=== PATIENT | female | born 1965 | race African-American/Black ===

== ENCOUNTER 2017-07-10 05:07 | Day surgery (SDC) | payer OTHER ==
[2017-07-03 12:29] VITALS: BMI 25.0
[2017-07-10] MEDS ORDERED: PROPOFOL 20 ML ONE ×2 (13:47)
[2017-07-10] MEDS ORDERED: MIDAZOLAM HCL 2 MG/2 ML SINGLE DOSE VIAL ONE ×2 (13:47)
[2017-07-10] MEDS ORDERED: LIDOCAINE 1%/EPI 1:100000 (50 ML MULTI DOSE VIAL) ONE (14:07)
[2017-07-10] MEDS ORDERED: BUPIVACAINE HCL/PF 0.5% (5MG/ML) 10 ML VIAL ONE (14:07)
[2017-07-10] MEDS ORDERED: LIDOCAINE 1%/EPI 1:100000 (20 ML MULTI DOSE VIAL) IJ ONE (14:33)
[2017-07-10] MEDS ORDERED: ACETAMINOPHEN 325 MG TABLET (FP) PO PRN (14:47)
[2017-07-10] MEDS ORDERED: ONDANSETRON 4 MG/2 ML VIAL IVPUSH PRN (14:47)
[2017-07-10] MEDS ORDERED: oxyCODONE HCL 5 MG TABLET PO PRN (14:47)
[2017-07-10] MEDS ORDERED: LACTATED RINGERS SOLUTION 1,000 ML IV SCH (15:00)
[2017-07-10 15:43] VITALS: TEMP 97.3
--- NOTE | 2017-07-10 16:18 | HP ---
Admitting History and Physical - Primary Care Physician PCP: Valentin Cramer (Tank Driver) - Admission Chief Complaint: Painful mass on the dorsum of the right foot first metatarsal anatomic neck area History of Present Illness: Mass has been present for several months and has remained unchanged since the patient first noticed it. Patient reports it is painful with any pressure exerted to the site. History Source: Medical Record (Medical history is deferred to PCP.) - Past Medical History ...LMP: 05/13/08 ...LMP Comment: PT HAD PAH 2007 - Smoking History Smoking history: Current every day smoker Have you smoked in the past 12 months: Yes Aproximately how many cigarettes per day: 5 - Alcohol/Substance Use Hx Alcohol Use: No Home Medications - Allergies Allergies/Adverse Reactions: Allergies Allergy/AdvReac Type Severity Reaction Status Date / Time No Known Allergies Allergy Verified 07/10/17 11:45 - Home Medications Home Medications: Ambulatory Orders Aspirin [ASA -] 81 mg PO DAILY 03/22/12 Nitroglycerin 0.4 mg SL PRN #1 tab.subl 03/26/12 Amlodipine Besylate [Norvasc -] 10 mg PO DAILY 03/07/16 Hydrochlorothiazide [Hctz -] 25 mg PO DAILY 03/07/16 Metoprolol Tartrate [Lopressor -] 100 mg PO DAILY 03/07/16 Isosorbide Mononitrate [Imdur -] 30 mg PO DAILY 07/10/17 Physical Examination Vital Signs: Vital Signs Temperature 97.3 F L 07/10/17 15:35 Pulse Rate 64 07/10/17 15:35 Respiratory Rate 16 07/10/17 15:35 Blood Pressure 133/87 07/10/17 15:35 O2 Sat by Pulse Oximetry (%) 98 07/10/17 15:35 Eyes: Yes: Occular Prosthesis Extremities: Yes: Other (Right dorsal first metatarsal anatomic neck area has palpable indurated mass with no overlying cutaneous inflammation or ulceration.) Assessment/Plan Assessment Probable ganglion/soft tissue mass of unknown origin Plan Center line biopsy to determine the tissue histology. Appropriate resection will be performed at a later date.
[2017-07-10 16:45] VITALS: BP 142/87; PULSE 77
--- NOTE | 2017-07-11 08:25 | OP ---
DATE OF OPERATION: 07/10/2017 SURGEON: Valentin Cramer DPM PREOPERATIVE DIAGNOSIS: Soft tissue mass of unknown origin. POSTOPERATIVE DIAGNOSIS: Soft tissue mass of unknown origin. PROCEDURE: Soft tissue mass center-line biopsy. DESCRIPTION OF PROCEDURE: Under fractional anesthesia and a surgical scrub with Betadine scrub and solution x2, the patient was draped using sterile technique. Inspection of the right foot showed an indurated soft tissue mass at the dorsal aspect of the 1st metatarsal anatomic neck with no overlying cutaneous abnormal signs or symptoms. Using a number 11 surgical blade, a 3-mm dorsal incision was made through the skin. Using a thumb and forefinger, forceps, the subcutaneous soft tissue mass was sampled, taking a small section from the dorsal surface. The wound was then closed with 4-0 nylon simple interrupted suture. A dry sterile dressing was applied to the right foot. The patient tolerated the surgical procedure well, left the operating room stable, alert, awake, and in no pain. GRACE NUNN/[id number]
--- NOTE | 2017-07-13 10:36 | PATH ---
Surgical Pathology Report Patient Name: ANGIE LINDSAY [facility]. Rec. #: [id number] /Age/Gender: 1965 (Age: 52) / F Account: [id number] Location: [facility] SURGICAL Taken: 07/10/2017 Received: 07/10/2017 Reported: 07/13/2017 Physicians: Valentin Cramer M.D. Specimen(s) Received PROBABLE RIGHT FOOT GANGLION (FRESH) Clinical History Subcutaneous neoplasm of unknown origin Biopsy of mass right dorsal first metatarsal Final Diagnosis SOFT TISSUE, RIGHT FOOT, BIOPSY: SCANT MUCOID MATERIAL. Comment: The findings are morphologically consistent with ganglion cyst contents in the proper clinical context. Recommend correlation with clinical findings and followup as clinically indicated. Electronically Signed Chino Burger M.D. Gross Description Received fresh labeled "possible right foot ganglion" is a 0.2 cm greatest dimension aggregate of mucoid material. Embedding will be attempted and a single cassette. [facility]/07/10/2017 [facility]/07/10/2017
== END 2017-07-10 16:44 | disposition home or self-care (01) ==
LOC: JASU-SURG 05:07
PROVIDERS: ATTEND Podiatrist Foot Surgery
PROC: 0JBQ0ZZ Excision of Right Foot Subcutaneous Tissue and Fascia, Open Approach (ICD-10-PCS; principal; 2017-07-10 13:00)
DX: D23.71 Other benign neoplasm of skin of right lower limb, including hip (principal)
CPT/HCPCS: 88304-TC; 94760

== ENCOUNTER 2018-10-01 12:41 | Day surgery (SDC) | payer OTHER ==
[2018-09-30 12:25] VITALS: BMI 27.8
[2018-10-01 13:43] LABS: INR 1.24 (0.83-1.09); PROTHROMBIN TIME (PATIENT) 14.7 SEC (9.7-13.0)
[2018-10-01] MEDS ORDERED: BUPIVACAINE HCL/PF 0.5% (5MG/ML) 10 ML VIAL ONE (15:08)
[2018-10-01] MEDS ORDERED: PROPOFOL 20 ML ONE (15:27)
[2018-10-01] MEDS ORDERED: LIDOCAINE HCL/PF 2% SDV 5ML VIAL ONE (15:28)
[2018-10-01] MEDS ORDERED: MIDAZOLAM HCL 2 MG/2 ML SINGLE DOSE VIAL ONE (15:28)
[2018-10-01] MEDS ORDERED: SODIUM CHLORIDE 0.9% P/F 10 ML VIAL IJ ONE (15:29)
[2018-10-01] MEDS ORDERED: ceFAZolin SODIUM 1 GM VIAL ONE (15:29)
[2018-10-01] MEDS ORDERED: ceFAZolin SODIUM 1 GM VIAL IVPB ONE (15:43)
[2018-10-01] MEDS ORDERED: LIDOCAINE HCL 1%, 10 MG/ML (50 mL VIAL) IJ ONE (16:04)
[2018-10-01] MEDS ORDERED: BUPIVACAINE HCL/PF 0.5% (5MG/ML) 10 ML VIAL IJ ONE (16:04)
[2018-10-01] MEDS ORDERED: ONDANSETRON 4 MG/2 ML VIAL IVPUSH PRN (16:21)
[2018-10-01] MEDS ORDERED: PROMETHAZINE HCL 25 MG/1 ML VIAL IVPB PRN (16:21)
[2018-10-01] MEDS ORDERED: LACTATED RINGERS SOLUTION 1,000 ML IV SCH (16:30)
[2018-10-01 21:16] VITALS: BP 152/80; PULSE 78; TEMP 98.1
--- NOTE | 2018-10-02 06:54 | OP ---
DATE OF OPERATION: 10/01/2018 SURGEON: Valentin Cramer DPM PREOPERATIVE DIAGNOSIS: Right 1st metatarsophalangeal joint ganglion. POSTOPERATIVE DIAGNOSIS: Right foot 1st metatarsal head exostosis. PROCEDURE: Resection of bone exostosis at the dorsum of the right 1st metatarsal head. Under fractional anesthesia and a surgical scrub with Betadine scrub and solution x2 the patient was draped using sterile technique. Palpation of the dorsal aspect of the right foot at the extensor tendon showed no sign of soft tissue mass. However, the patient was complaining of a painful prominence just medial to that site at the 1st metatarsal head. Using a No. 15 surgical blade a linear longitudinal incision was made through skin and the skin and soft tissue were retracted. The joint capsule was longitudinally incised and reflected medially and laterally exposing a dorsal bone spur at the 1st metatarsal head on the medial side. Using a bone rasp the bone spur was resected. The wound was irrigated with sterile saline and then deep tissues were reapproximated and closed with 4-0 Vicryl and then skin was reapproximated and closed with simple interrupted nylon sutures. A dry sterile dressing was applied to the right foot. The patient tolerated the surgical procedure well and left the operating room stable, alert, awake and in no pain. GRACE NUNN/[id number]
--- NOTE | 2018-10-07 18:24 | PATH ---
Surgical Pathology Report Patient Name: ANGIE LINDSAY Med. Rec. #: [id number] /Age/Gender: 1965 (Age: 53) / F Account: [id number] Location: [facility] SURGICAL Taken: 10/01/2018 Received: 10/04/2018 Reported: 10/07/2018 Physicians: Valentin Cramer M.D. Specimen(s) Received BONE SPUR RIGHT METATARSAL 1ST HEAD Clinical History Benign neoplasm right lower limb Final Diagnosis BONE SPUR, METATARSAL, FIRST, HEAD, RIGHT, REMOVAL: BONE AND CARTILAGE WITH DEGENERATIVE CHANGES. DENSE FIBROCONNECTIVE, FIBROVASCULAR, AND FIBROADIPOSE TISSUE. Electronically Signed Nimisha Huang M.D. Gross Description Received in formalin labeled as "bone spur right metatarsal first head" are 3 white tena bony fragments ranging in size from 0.2-0.4 cm. Entire specimen is submitted in one cassette after decalcification. [facility]/10/04/2018 [facility]/10/04/2018
== END 2018-10-01 18:00 | disposition home or self-care (01) ==
LOC: JASU-SURG 12:41
PROVIDERS: ATTEND Podiatrist Foot Surgery
PROC: 0JBQ0ZZ Excision of Right Foot Subcutaneous Tissue and Fascia, Open Approach (ICD-10-PCS; principal; 2018-10-01 14:00)
DX: D49.2 Neoplasm of unspecified behavior of bone, soft tissue, and skin (principal)
CPT/HCPCS: 36415; 85610; 88305-TC; 88311-TC; 94760

== ENCOUNTER 2021-09-25 18:25 | Emergency (ER) | payer OTHER ==
[2021-09-25 18:50] VITALS: BP 169/84; PULSE 88; TEMP 98.3; BMI 28.1
== END 2021-09-25 20:10 | disposition home or self-care (01) ==
LOC: JER 18:25
DX: J45.901 Unspecified asthma with (acute) exacerbation (principal); J06.9 Acute upper respiratory infection, unspecified
CPT/HCPCS: 87804; 87807; 99283-25; C9803; U0003; U0005